=== PATIENT | female | born 1995 | race Caucasian/White ===

== ENCOUNTER 2016-12-13 09:50 | Inpatient (IN) | payer OTHER ==
--- NOTE | 2016-12-12 21:19 | HP ---
DATE OF ADMISSION: 12/13/2016 HISTORY OF PRESENT ILLNESS: This is a 21-year-old white female G2, P1 at 39 weeks gestation with an EDC of 12/20/2016, being admitted for an elective repeat low-transverse section. The harry ent's course has been uncomplicated. No complaints of rupture of membranes, fever, nausea, or vomiting. She has been having occasional contractions over the past several days. She has had 1 prior section in 2016. PAST MEDICAL HISTORY: History of reflux, history of UTI. ALLERGIES: None. PAST SURGICAL HISTORY: Tonsillectomy, x1. FAMILY HISTORY: Mother with diabetes and hypertension. SOCIAL HISTORY: She is single, nonsmoker, does not drink alcohol, graduate from [employer]. REVIEW OF SYSTEMS: As above. PHYSICAL EXAMINATION: VITAL SIGNS: Blood pressure 100/60, weight 172. HEENT: Clear. HEART: Regular rate and rhythm. LUNGS: Clear. ABDOMEN: Soft, gravid, nontender. EXTREMITIES: With no edema. LABORATORY DATA: GBS negative. One hour GGT 116. Urine culture negative, GC chlamydia negative. 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 TSH normal. Hepatitis B negative. HIV negative. Blood type A positive. RPR negat je. Rubella immune. Hepatitis B negative. ASSESSMENT: 1. A 39-week intrauterine . 2. Prior section x1. PLAN: 1. Anesthesia preop. 2. Routine L\T\D orders. 3. Consent for repeat low transverse section.
[2016-12-13] MEDS ORDERED: Promethazine HCl 25 MG/ML VIAL IM PRN ×3 (09:57→13:16)
[2016-12-13] MEDS ORDERED: CEFAZOLIN/Water 2 GM/20 ML SYRINGE SLOW IVP SCH (09:57)
[2016-12-13] MEDS ORDERED: Ondansetron HCl/PF 4 MG/2 ML Vial IVP PRN ×5 (09:57→14:59)
[2016-12-13] MEDS ORDERED: Bicitra 30 ML UDCUP PO SCH (09:57)
[2016-12-13 10:48] LABS: Hematocrit 37.2 % (36.0-47.0); Mean Platelet Volume 8.8 fL (7.4-10.4); White Blood Cell (WBC) Count 6.6 thou/uL (4.8-10.8)
[2016-12-13 10:49] VITALS: BMI 32.6
[2016-12-13] MEDS ORDERED: Lactated Ringer's 1,000 ML IV SCH ×3 (11:19→14:59)
[2016-12-13] MEDS ORDERED: Morphine PF 1 MG/ML SYR ONE (11:50)
[2016-12-13] MEDS ORDERED: Fentanyl 100 MCG/2 ML VIAL ONE (11:50)
[2016-12-13] MEDS ORDERED: ePHEDrine/0.9% NaCl/PF SYRINGE 50 mg/10 ml ONE (11:51)
[2016-12-13] MEDS ORDERED: Oxytocin 10 UNITS/ML VIAL ONE (11:52)
[2016-12-13] MEDS ORDERED: Ondansetron HCl/PF 4 MG/2 ML Vial ONE (11:58)
[2016-12-13] MEDS ORDERED: Metoclopramide HCl 10 MG/2 ML VIAL ONE (11:58)
[2016-12-13] MEDS ORDERED: Promethazine HCl 25 MG/ML VIAL ONE (11:58)
[2016-12-13] MEDS ORDERED: PHENYLEPHRINE-NS 100 MCG/ML 10 ML SYRINGE ONE (12:15)
[2016-12-13] MEDS ORDERED: Ketorolac Tromethamine 30 MG/ML VIAL ONE (12:38)
[2016-12-13] MEDS ORDERED: diphenhydrAMINE 50 MG/ML VIAL IVP PRN (13:16)
[2016-12-13] MEDS ORDERED: Naloxone HCl 0.4 mg/ml Vial IV PRN (13:16)
[2016-12-13] MEDS ORDERED: Promethazine HCl 25 MG SUPP PR PRN (13:16)
[2016-12-13] MEDS ORDERED: Ketorolac Tromethamine 30 MG/ML VIAL IVP PRN (13:16)
[2016-12-13] MEDS ORDERED: Meperidine HCl/PF 25 MG/ML VIAL SLOW IVP PRN (13:16)
[2016-12-13] MEDS ORDERED: Naloxone HCl 0.4 mg/ml Vial IVP PRN ×2 (13:16)
[2016-12-13] MEDS ORDERED: HYDROmorphone 2 MG/ML VIAL SLOW IVP PRN (13:16)
[2016-12-13] MEDS ORDERED: Eucerin (Mineral Oil/Petrolatum,White) 30 gm Jar TOP PRN (13:16)
--- NOTE | 2016-12-13 13:18 | OP ---
DATE OF PROCEDURE: 12/13/2016 PREOPERATIVE DIAGNOSES: 1. Term . 2. Prior section. POSTOPERATIVE DIAGNOSES: 1. Term . 2. Prior section. PROCEDURE PERFORMED: Repeat low transverse section. SURGEON: Yoan Ferris M.D. HOLISTIC SPECIALIST: Dr. Chavo Wall. ANESTHESIA: Spinal. DESCRIPTION OF PROCEDURE: This is a 21-year-old white female G2, P1 taken to the operating room. S he was placed in the supine position. The abdomen was prepped and draped sterilely. The previous s car was excised. Pfannenstiel incision was made down to subcutaneous. Fascia was opened without in cident. The peritoneum was opened by blunt dissection. Bladder blade was placed. Bladder flap dis sected inferiorly. Low transverse uterine incision was made. Fluid was noted to be clear. Deliver ed a baby, breathing and crying vigorously upon delivery. Delivered the placenta manually intact. Cervix was dilated. The uterus was closed with 1 layer of #1 Monocryl. The abdomen was evacuated o f all clots. Peritoneum was closed with 2-0 chromic. The fascia was closed with 0 Vicryl and the s kin with theresa. Estimated blood loss was 600 mL. Mother and baby did very well.
--- NOTE | 2016-12-13 13:27 | PRG ---
DATE OF SERVICE: 12/13/2016 Dr. Yoan Ferris was primary surgeon for a repeat on Ms. Dana Villa. I was present as fi rst assist.
[2016-12-13] MEDS ORDERED: Ketorolac Tromethamine 30 MG/ML VIAL IVP SCH (13:30)
[2016-12-13] MEDS ORDERED: Communication Order-Pharmacy FS SCH (13:30)
[2016-12-13] MEDS ORDERED: LR / Pitocin 40 units/1000 ml 1,000 ML ONE (13:33)
[2016-12-13] MEDS ORDERED: LR / Pitocin 40 units/1000 ml 1,000 ML IV SCH (14:00)
[2016-12-13] MEDS ORDERED: FLU VACC QS2017-18 36 mo. & older 0.5 ML SYRINGE IM ONE (14:00)
[2016-12-13] MEDS ORDERED: HYDROcodone/Acetaminophen 5/325 mg Tablet PO PRN (14:59)
[2016-12-13] MEDS ORDERED: Acetaminophen 325 MG TAB PO PRN (14:59)
[2016-12-13] MEDS ORDERED: Simethicone Chewable 80 MG TAB PO PRN (14:59)
[2016-12-13] MEDS ORDERED: Lanolin Ointment 7 GM TUBE TOP PRN (14:59)
[2016-12-13] MEDS ORDERED: diphenhydrAMINE 25 MG CAP PO PRN (14:59)
[2016-12-13] MEDS: Ibuprofen 800 MG TAB PO SCH (17:25)
[2016-12-14] MEDS: Ferrous Sulfate 325 MG TAB PO SCH ×3 (02:34→21:17)
[2016-12-14] MEDS: Ibuprofen 800 MG TAB PO SCH ×3 (05:25→21:17)
[2016-12-14 05:27] LABS: Hematocrit 33.3 % (36.0-47.0); Mean Platelet Volume 8.3 fL (7.4-10.4); Red Blood Cell (RBC) Count 3.67 mill/uL (4.00-5.20); White Blood Cell (WBC) Count 10.6 thou/uL (4.8-10.8)
[2016-12-14] MEDS: HYDROcodone/Acetaminophen 5/325 mg Tablet PO PRN ×3 (08:26→17:31)
[2016-12-14] MEDS: Prenatal Vitamin 1 TAB PO SCH (08:26)
[2016-12-14] MEDS ORDERED: Adacel (T-DAP) 0.5 ML VIAL IM ONE (09:00)
[2016-12-14] MEDS ORDERED: Docusate (Surfak) 240 MG CAP PO SCH (21:30)
[2016-12-15] MEDS: Ibuprofen 800 MG TAB PO SCH ×2 (04:05→13:12)
[2016-12-15] MEDS: HYDROcodone/Acetaminophen 5/325 mg Tablet PO PRN (08:45)
[2016-12-15] MEDS: Prenatal Vitamin 1 TAB PO SCH (08:45)
[2016-12-15] MEDS ORDERED: Docusate (Surfak) 240 MG CAP PO SCH (09:00)
[2016-12-15] MEDS: Ferrous Sulfate 325 MG TAB PO SCH (09:58)
[2016-12-15 11:27] VITALS: BP 117/58; TEMP 98.7
[2016-12-15] MEDS ORDERED: FLU VACC QS2017-18 36 mo. & older 0.5 ML SYRINGE IM ONE (13:30)
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
== END 2016-12-15 14:50 | disposition home or self-care (01) | DRG 766 ==
LOC: L&D 09:50 → EEVIPCON 09:50 → L&D 12:07 → 3SW 14:39
PROVIDERS: ADMIT Family Medicine; ATTEND Family Medicine
PROC: 10D00Z1 Extraction of Products of Conception, Low, Open Approach (ICD-10-PCS; principal; 2016-12-13)
DX: O34.211 Maternal care for low transverse scar from previous cesarean delivery (principal); Z23 Encounter for immunization; Z37.0 Single live birth; Z3A.39 39 weeks gestation of pregnancy; Z63.0 Problems in relationship with spouse or partner
CPT/HCPCS: 36415; 85027; 86780; 86850; 86900; 86901; 87340; 90471; 90682; 90715; G0008; J1885; J2274; J2405; J2550; J2590; J2765; J3010; Q2036

== ENCOUNTER 2018-09-07 08:36 | Outpatient (CLI) | payer OTHER ==
--- NOTE | 2018-09-07 09:14 | ULT ---
OBSTETRICAL ULTRASOUND: Date: 09/07/2018 HISTORY: Evaluate size and dates. TECHNIQUE: Multiplanar grayscale sonographic imaging of the gravid uterus obtained. FINDINGS: Single intrauterine gestation present with a heart rate of 143 bpm. Cephalic presentation noted. Cervical length approximately 3.9 cm. Placenta located in the anterior fundus, demonstrating no evidence for placental previa or abruption. urinary bladder, umbilical cord insertion, stomach, kidneys, four-chamber heart view, spine, in tracranial contents, and nose/lips unremarkable. biometry: BPD 4.0 cm 18 weeks 2 days HC 15.7 cm 18 weeks 5 days AC 12.4 cm 18 weeks 1 day FL 3.1 cm 19 weeks 5 days Average age based on ultrasound is 18 weeks 5 days. Estimated date of delivery is 02/03/2019. Estimated weight is 256 g +/- 37 g - 57th percentile. IMPRESSION: Single intrauterine gestation as detailed above. No abnormalities noted. Transcribed Date/Time: 09/07/2018 9:56 AM
== END 2018-09-07 08:37 | disposition home or self-care (01) ==
LOC: BICULT 08:36
PROVIDERS: ATTEND Family Medicine
DX: Z34.82 Encounter for supervision of other normal pregnancy, second trimester (principal); Z3A.18 18 weeks gestation of pregnancy
CPT/HCPCS: 76805

== ENCOUNTER 2018-12-28 10:18 | Day surgery (SDC) | payer OTHER ==
[2018-12-28 10:42] VITALS: BP 131/88; TEMP 98.5; BMI 34.5
--- NOTE | 2018-12-28 12:09 | PRG ---
DATE OF SERVICE: 12/28/2018 PRIMARY OB: Dr. Ana Ferris. CHIEF COMPLAINT: Abdominal pains. HISTORY OF PRESENT ILLNESS: The patient is a 23-year-old G3, P2 female with an intrauterine at 34 weeks and 4 days, presenting with a 1-day history of uterine contractions. The patient reports intercourse yesterday. She denies any history of deliveries with this . She denies any history of urinary tract infections. She denies urinary urgency or frequency, change in discharge bleeding. She denies any recent illness, fever, fall, headache, chest pain, significant shortness of breath, nausea, vomiting, diarrhea, or constipation. The patient does report hip problems that have been present since before the . She attributes to her ears playing volleyball. She also denies any new rashes, vaginal bleeding, leakage of fluid or change in discharge. PAST MEDICAL HISTORY: Negative. PAST SURGICAL HISTORY: She has had 2 prior C-sections and had her tonsils removed. ALLERGIES: NO KNOWN DRUG ALLERGIES. MEDICATIONS: vitamins. SOCIAL HISTORY: Denies drug, alcohol, or tobacco use. OB LABS: RPR is nonreactive in the first trimester. GC chlamydia are negative. Hepatitis B surface antigen negative in first trimester. HIV negative in the third trimester. She is rubella immune. Blood type is A positive. REVIEW OF SYSTEMS: Per HPI. PHYSICAL EXAMINATION: VITAL SIGNS: Blood pressure is 122/73, heart rate of 108, saturating 98% on room air. GENERAL: She appears to be in no acute distress. She is alert, oriented, cooperative, and pleasant to interact with. HEENT: Head, normocephalic and atraumatic. LUNGS: Clear to auscultation bilaterally. HEART: Regular rate and rhythm. ABDOMEN: Soft, nontender. EXTREMITIES: Nontender, nonedematous. She has no vertebral tenderness. No CVA tenderness. No SI joint tenderness. : Vulva is without masses, lesions, or erythema. Vagina is moist with no significant discharge. Cervix is visible and closed. On bimanual digital exam, cervix is closed, thick and high and baby is ballotable. heart tracing shows the fetus with a baseline in the 150s with moderate long-term variability, positive 15 x 15 accelerations, no decelerations. Tocometer showing contractions about every 2 to 4 minutes, not palpating at this time. ASSESSMENT AND PLAN: The patient is a 23-year-old with contractions, likely secondary to intercourse yesterday as these began after that. The patient has no evidence of labor at this time. Cervix is closed, thick and firm. Baby is ballotable and not presenting with pressure on the cervix. We will be giving her IV hydration over the next hour or two and reassess. The patient may at that time if she continues to contractions, we will get an ultrasound to look cervical length and give her Procardia for maternal comfort and depending on ultrasound results may or may not give steroids. addendum: ucx improved considerably with iv hydration. Pt was discharged home with labor precautions. fetus with reactive nst Job ID: [id number] [facility]
[2018-12-28] MEDS ORDERED: hydrALAZINE 20 MG/ML VIAL SLOW IVP PRN (14:41)
[2018-12-28] MEDS ORDERED: Lactated Ringer's 1,000 ML IV SCH (14:45)
[2018-12-29] MEDS ORDERED: FLU VACC QS2019-20(6MOS UP)/PF 60 MCG/0.5 ML SYRINGE IM ONE (11:00)
== END 2018-12-28 14:45 | disposition home or self-care (01) ==
LOC: L&D/OP 10:18
PROVIDERS: ATTEND Family Medicine
DX: O47.03 False labor before 37 completed weeks of gestation, third trimester (principal); O34.219 Maternal care for unspecified type scar from previous cesarean delivery; Z3A.34 34 weeks gestation of pregnancy

== ENCOUNTER 2019-01-28 06:03 | Inpatient (IN) | payer OTHER ==
[2019-01-28] MEDS ORDERED: Lactated Ringer's 1,000 ML IV SCH (06:28)
[2019-01-28] MEDS ORDERED: Ondansetron PF 4 MG/2 ML Vial IVP PRN ×3 (06:28→10:35)
[2019-01-28] MEDS ORDERED: Promethazine HCl 25 MG/ML VIAL IM PRN ×2 (06:28→08:24)
[2019-01-28] MEDS ORDERED: hydrALAZINE 20 MG/ML VIAL SLOW IVP PRN ×2 (06:28→10:35)
[2019-01-28] MEDS ORDERED: CEFAZOLIN 2 GM in Premix Bag 1 BAG IVPB SCH (06:30)
[2019-01-28] MEDS ORDERED: Bicitra 30 ML UDCUP PO SCH (06:30)
[2019-01-28 06:35] VITALS: BMI 34.5
[2019-01-28 06:49] LABS: Hemoglobin 11.9 g/dL (12.0-16.0); Mean Corpuscular HGB CONC 33.9 g/dL (32.0-36.0); Mean Corpuscular Hemoglobin 28.1 pg (27.0-31.0); Mean Platelet Volume 8.7 fL (7.4-10.4); Platelet Count 302 thou/uL (130-400); RBC Distribution Width 13.1 % (11.5-14.5); Red Blood Cell (RBC) Count 4.24 mill/uL (4.20-5.40); White Blood Cell (WBC) Count 9.1 thou/uL (4.8-10.8)
[2019-01-28] MEDS ORDERED: Oxytocin 10 UNITS/ML VIAL ONE (06:54)
[2019-01-28] MEDS ORDERED: MORPHINE 5 MG/10 ML PF VIAL ONE (06:54)
[2019-01-28 07:32] LABS: Syphilis Antibody Nonreactive (Nonreactive); Syphilis Antibody Index 0.15 S/CO (<1.00 Non-Reactive)
[2019-01-28] MEDS ORDERED: Ondansetron PF 4 MG/2 ML Vial ONE (07:36)
[2019-01-28 07:37] LABS: HBSAg Index 0.17 S/CO (0-0.99); Hep B Surf Ag Non-Reactive S/CO (NonReactive)
[2019-01-28] MEDS ORDERED: PHENYLEPHRINE-NS 100 MCG/ML 10 ML SYRINGE ONE (07:51)
[2019-01-28] MEDS ORDERED: Midazolam HCl 2 mg/2 ml Vial ONE (07:56)
[2019-01-28] MEDS ORDERED: L&D-Morphine 4 MG/ML VIAL SLOW IVP PRN (08:24)
[2019-01-28] MEDS ORDERED: Naloxone HCl 0.4 mg/ml Vial IVP PRN ×2 (08:24)
[2019-01-28] MEDS ORDERED: HYDROmorphone 2 MG/ML VIAL SLOW IVP PRN (08:24)
[2019-01-28] MEDS ORDERED: Promethazine HCl 25 MG SUPP PR PRN (08:24)
[2019-01-28] MEDS ORDERED: Ondansetron HCl/PF 4 MG/2 ML Vial IVP PRN (08:24)
[2019-01-28] MEDS ORDERED: diphenhydrAMINE 50 MG/ML VIAL IVP PRN (08:24)
[2019-01-28] MEDS ORDERED: Meperidine HCl/PF 25 MG/ML VIAL SLOW IVP PRN (08:24)
[2019-01-28] MEDS ORDERED: Naloxone HCl 0.4 mg/ml Vial IV PRN (08:24)
[2019-01-28] MEDS ORDERED: Ketorolac Tromethamine 30 MG/ML VIAL IVP SCH (08:30)
[2019-01-28] MEDS ORDERED: Communication Order-Pharmacy FS SCH (08:30)
[2019-01-28] MEDS ORDERED: NS / Oxytocin 40 units/1000ml 1,000 ML ONE (08:52)
[2019-01-28] MEDS ORDERED: Lanolin Ointment 7 GM TUBE TOP PRN (10:35)
[2019-01-28] MEDS ORDERED: Simethicone Chewable 80 MG TAB PO PRN (10:35)
[2019-01-28] MEDS ORDERED: Bisacodyl 10 MG SUPP PR PRN (10:35)
[2019-01-28] MEDS ORDERED: Acetaminophen 325 MG TAB PO PRN (10:35)
[2019-01-28] MEDS ORDERED: diphenhydrAMINE 25 MG CAP PO PRN (10:35)
[2019-01-28] MEDS ORDERED: Docusate Calcium (SURFAK) 240 MG CAP PO SCH (10:45)
[2019-01-28] MEDS ORDERED: Prenatal Vitamin 1 TAB PO SCH (10:45)
[2019-01-28] MEDS: Ketorolac Tromethamine 30 MG/ML VIAL IVP PRN (10:50)
[2019-01-28 10:58] LABS: Actual Bicarbonate (HCO3a) 25.7 mEq/L (22-28); Analyzer IN Cardio OR; Base Excess (BEa) -2.8 mEq/L (-2.0 to +3.0)
[2019-01-28 10:59] LABS: Actual Bicarbonate (HCO3v) 25 mEq/L (22-28); Analyzer IN Cardio OR; Base Excess -2.8 mEq/L (-2.0 to +3.0); pH (Cord, venous) 7.26 (7.32-7.43)
--- NOTE | 2019-01-28 14:34 | OP ---
DATE OF PROCEDURE: 01/28/2019 PREOPERATIVE DIAGNOSIS: Term intrauterine with previous section x2. POSTOPERATIVE DIAGNOSIS: Term intrauterine with previous section x2, status post delivery. PROCEDURE PERFORMED: Repeat low-transverse section. ASSISTANTS: Yoan Ferris MD and Sarah Puckett MS-3. COMPLICATIONS: No complications. DESCRIPTION OF PROCEDURE: After adequate spinal anesthetic, the patient was placed in supine position. Nina catheter was placed. Abdomen was prepped and draped in usual sterile technique. A Pfannenstiel incision was made through the old incision, and subcutaneous tissue opened with sharp dissection. The fascia was opened with sharp dissection. Peritoneum opened with blunt dissection. Noted that the abdomen was still with a gravid uterus. An Sahil O retractor was placed without difficulty, and a low-transverse incision was made on the uterus. Membranes were ruptured. Clear fluid was encountered, and a viable female infant was delivered from vertex presentation without difficulty. Noted the breathed and cried spontaneously. Cord was clamped and cut. was handed to the care of the Neonatology Team. Cord blood was obtained. The placenta was delivered manually and appeared intact. A wet lap was used to wipe clean the uterus, and ring forceps were placed over the hysterotomy. The hysterotomy was then closed in continuous fashion using 0 Monocryl. Hemostasis was adequate. Sponge and instrument counts were correct. The Sahil O retractor was removed, and the peritoneum was then closed in continuous fashion using 0 chromic. The fascia was then closed in continuous fashion using 0 Vicryl. Again, sponge and instrument counts were correct. Few bleeders were cauterized on the subcutaneous tissue. This was closed with a running suture of 2-0 plain. The skin was then closed using theresa. The patient tolerated the procedure well, to go to recovery room in good condition. Baby is in level 1 nursery in good condition. Quantitative blood loss 480 mL. Job ID: [id number]
[2019-01-28] MEDS ORDERED: HYDROcodone/Acetaminophen 5/325 mg Tablet PO PRN (20:31)
[2019-01-28] MEDS: Ferrous Sulfate 325 MG TAB PO SCH (21:15)
[2019-01-28] MEDS: Docusate Calcium (SURFAK) 240 MG CAP PO SCH (21:15)
[2019-01-29] MEDS: Ketorolac Tromethamine 30 MG/ML VIAL IVP PRN (00:32)
[2019-01-29] MEDS: Acetaminophen/Codeine 30-300mg Tablet PO PRN ×3 (04:45→20:14)
[2019-01-29 06:10] LABS: Hemoglobin 9.1 g/dL (12.0-16.0); Mean Corpuscular HGB CONC 33.9 g/dL (32.0-36.0); Mean Corpuscular Hemoglobin 28.1 pg (27.0-31.0); Mean Corpuscular Volume 82.9 fL (78.0-98.0); Mean Platelet Volume 8.6 fL (7.4-10.4); Platelet Count 237 thou/uL (130-400); Red Blood Cell (RBC) Count 3.25 mill/uL (4.20-5.40); White Blood Cell (WBC) Count 10.6 thou/uL (4.8-10.8)
[2019-01-29] MEDS: Ferrous Sulfate 325 MG TAB PO SCH ×2 (09:22→21:26)
[2019-01-29] MEDS: Prenatal Vitamin 1 TAB PO SCH (09:22)
[2019-01-29] MEDS: Docusate Calcium (SURFAK) 240 MG CAP PO SCH ×2 (09:30→21:26)
[2019-01-29] MEDS: Ibuprofen 800 MG TAB PO SCH ×2 (14:23→21:27)
[2019-01-30] MEDS: Acetaminophen/Codeine 30-300mg Tablet PO PRN (03:51)
[2019-01-30] MEDS: Ibuprofen 800 MG TAB PO SCH ×2 (05:53→14:03)
--- NOTE | 2019-01-30 06:06 | PDOC.PP ---
Post Progress Note Post Day #: 2 Subjective: Doing well, no complaints. Pain well controlled. Would like to stay as long as baby does but ready to go home otherwise PO intake tolerated: yes Flatus: yes Ambulation: yes Vital Signs (12 hours) Temp Pulse Resp BP Pulse Ox 01/30/19 03:51 97.7 F 100 18 134/77 01/30/19 00:13 98.3 F 94 18 134/73 01/29/19 19:40 98.8 F 86 16 123/64 98 Weight Weight 83.007 kg - Physical Examination General: NAD Cardiovascular: no m/r/g, RRR Respiratory: clear to auscultation bilaterally, non-labored breathing Abdominal: appropriately TTP Extremities: negative homans (B) Skin: CS incision dry & intact, no rash Neurological: no gross focal deficits Psychiatric: A&Ox3, normal affect Result Diagrams: 01/29/19 05:54 Additional Labs: Post Labs Blood Type A POSITIVE 01/28/19 06:35 Hep Bs Antigen Non-Reactive S/CO (NonReactive) 01/28/19 06:35 - Assessment/Plan s/p rLTCS, PPD2 1. S/P rLTCS, PPD2 - course uncomplicated thus far -Doing well -Ready for home, pedning baby d/c 2. Anemia -Clinically stable, AVSS -Continue PO iron BID Dispo: Pending baby bilirubin can bed & breakfast vs. home
[2019-01-30] MEDS: Docusate Calcium (SURFAK) 240 MG CAP PO SCH (09:19)
[2019-01-30] MEDS: Prenatal Vitamin 1 TAB PO SCH (09:19)
[2019-01-30] MEDS: Ferrous Sulfate 325 MG TAB PO SCH (09:20)
[2019-01-30 13:03] VITALS: BP 132/77; TEMP 97.9
--- NOTE | 2019-02-01 21:25 | PQF ---
[employer] Crystal Reports Winform ViewerWARICHARD RING ANNA P MD [id number] CLINICAL DOCUMENTATION CLARIFICATION FORM: POST DISCHARGE Addendum to original discharge summary date: ____ Late entry note date: __ DATE: 01/1619 ATTN: Ana Alvarado Please exercise your independent, professional judgment in responding to the clarification form. Clinical indicators are provided on the bottom of this form for your review Cam you please further clarify the specificity of anemia? Please check appropriate box(s): [ ] Acute blood loss anemia [ ] Post-op anemia related to acute blood loss [ ] Anemia unspecified [ ] Other diagnosis please specify [ ] Unable to determine In addition, please specify: Present on Admission (POA): [ ] Yes [ ] No [ ] Unable to determine For continuity of documentation, please document condition throughout progress notes and discharge summary. Thank You. CLINICAL INDICATORS - SIGNS / SYMPTOMS / LABS Post PN 01/30 pg.2- Anemia- clinically stable OP Report 01/28 pg.1- repeat low transverse section OP Report pg.1- quantitative blood loss 480ml RISK FACTORS Post PN 01/30 pg.2- Anemia- clinically stable OP Report 01/28 pg.1- repeat low transverse section OP Report pg.1- quantitative blood loss 480ml Laboratory- HGB 11.9L, 9.1L Laboratory-35.2L, 27.0L TREATMENTS: IV fluids- APR 28 Ferrous sulfate (Feosol) 325mg PO- APR 28 (This form is maintained as a part of the permanent medical record) 2014 [employer]. All Rights Reserved [email or web address] [not [email or web address]] [email or web address]
== END 2019-01-30 16:30 | disposition home or self-care (01) | DRG 788 ==
LOC: L&D 06:03 → 3SW 10:35
PROVIDERS: ADMIT Family Medicine; ATTEND Family Medicine
PROC: 10D00Z1 Extraction of Products of Conception, Low, Open Approach (ICD-10-PCS; principal; 2019-01-28)
DX: O34.211 Maternal care for low transverse scar from previous cesarean delivery (principal); O99.824 Streptococcus B carrier state complicating childbirth; Z3A.39 39 weeks gestation of pregnancy; Z37.0 Single live birth; O90.81 Anemia of the puerperium; D64.9 Anemia, unspecified
CPT/HCPCS: 36415; 51702; 82805; 85027; 86780; 86850; 86900; 86901; 87340; J0690; J1885; J2250; J2274; J2405; J2590

== ENCOUNTER 2020-12-12 14:52 | Emergency (ER) | payer OTHER ==
[2020-12-12] MEDS ORDERED: Acetaminophen 500 MG TAB ONE (15:45)
[2020-12-12] MEDS ORDERED: Ketorolac Tromethamine 30 MG/ML VIAL ONE (15:45)
[2020-12-12] MEDS ORDERED: Metoclopramide HCl 10 MG/2 ML VIAL ONE (15:45)
[2020-12-12] MEDS ORDERED: Dexamethasone 10 MG/ML VIAL ONE (15:45)
[2020-12-12] MEDS ORDERED: diphenhydrAMINE 50 MG/ML VIAL ONE (15:45)
[2020-12-12 15:49] LABS: #Basophils 0.1 thou/uL (0.0-0.2); #Eosinphils 0.2 thou/uL (0.0-0.7); #Lymphocytes 3.7 thou/uL (1.20-3.40); #Monocytes 0.6 thou/uL (0.11-0.59); #Neutrophils 5.1 thou/uL (1.40-6.50); %Basophils 0.6 % (0.0-1.0); %Eosinophils 1.8 % (0.0-10.0); %Lymphocytes 38.4 % (21.0-51.0); %Monocytes 6.3 % (0.0-10.0); Hemoglobin 14.3 g/dL (12.0-16.0); Mean Corpuscular HGB CONC 34.9 g/dL (32.0-36.0); Mean Corpuscular Hemoglobin 31.4 pg (27.0-31.0); Mean Platelet Volume 7.6 fL (7.4-10.4); Platelet Count 337 thou/uL (130-400); RBC Distribution Width 11.3 % (11.5-14.5); Red Blood Cell (RBC) Count 4.56 mill/uL (4.20-5.40); White Blood Cell (WBC) Count 9.6 thou/uL (4.8-10.8)
[2020-12-12 16:08] LABS: ALT (SGPT) 20 U/L (8-55); AST (SGOT) 17 U/L (5-34); Albumin 4.3 g/dL (3.5-5.0); Alkaline Phosphatase 74 U/L (40-110); Anion Gap 13 mmol/L (10-20); BUN (Urea Nitrogen) 7 mg/dL (7.0-18.7); Bilirubin, Total 0.4 mg/dL (0.2-1.2); Calc. Creatinine Clearance 0 mL/min (70-130); Calcium 9.6 mg/dL (7.8-10.44); Carbon Dioxide 24 mmol/L (22-29); Chloride 105 mmol/L (98-107); Globulin 3.3 g/dL (2.4-3.5); Glucose 106 mg/dL (70-105); Potassium 4.1 mmol/L (3.5-5.1); Protein, Total 7.6 g/dL (6.0-8.3); Sodium 138 mmol/L (136-145)
[2020-12-12 16:38] LABS: BHCG - Serum POSITIVE (NEGATIVE); Pregs Control Background? CLEAR/WHITE (CLR/WHITE); Pregs Control Bar Appear? YES (CONTROL BAR)
== END 2020-12-12 18:05 | disposition home or self-care (01) ==
LOC: ERS 14:52
DX: O99.891 Other specified diseases and conditions complicating pregnancy (principal); R51.9 Headache, unspecified; Z3A.01 Less than 8 weeks gestation of pregnancy
CPT/HCPCS: 80053; 84703; 85025; 96365; 96375; J1100; J1200; J1885; J2765